=== PATIENT | male | born 1990 | race Caucasian/White ===

== ENCOUNTER 2020-06-21 06:21 | Outpatient (REF) | payer OTHER, SELFPAY ==
[2020-06-21 12:05] LABS: Alanine Aminotransferase 23 U/L (0-40); Albumin Level 4.2 g/dL (3.5-5.0); Alkaline Phosphatase 61 U/L (39-117); Anion Gap 10 (12-20); Aspartate Amino Transferase 22 U/L (5-37); Bilirubin Total 0.3 mg/dL (0.0-1.0); Blood Urea Nitrogen 12 mg/dL (9-16); Carbon Dioxide 29 mmol/L (22-29); Chloride 105 mmol/L (96-108); Cholesterol 164 mg/dL; Estimated Glomerular Filt Rate > 60; Glucose Fasting 90 mg/dL (60-99); HDL Cholesterol 38 mg/dL; LDL Cholesterol Calculated 55 mg/dl; Potassium 3.9 mmol/L (3.3-5.1); Sodium 140 mmol/L (135-145); Total Protein 6.6 g/dL (6.5-8.0); Triglycerides 356 mg/dL
[2020-06-21 12:27] LABS: TSH reflex Free T4 0.91 uIU/mL (0.32-4.0)
== END 2020-06-21 06:22 | disposition home or self-care (01) ==
LOC: HO.HMGCLDS 06:21
PROVIDERS: PCP Nurse Practitioner Family; Visit Provider Nurse Practitioner Family
DX: Z00.00 Encounter for general adult medical examination without abnormal findings (principal); E78.1 Pure hyperglyceridemia
CPT/HCPCS: 36415; 80053; 80061; 84443

== ENCOUNTER 2020-08-14 10:14 | Outpatient (REF) | payer OTHER, SELFPAY ==
[2020-08-14 10:31] LABS: COVID-19 Test Negative (Negative)
== END 2020-08-14 10:15 | disposition home or self-care (01) ==
LOC: HO.LAB 10:14
PROVIDERS: Visit Provider Internal Medicine
DX: Z20.822 Contact with and (suspected) exposure to COVID-19 (principal)
CPT/HCPCS: 36415; 87635; C9803

== ENCOUNTER 2020-11-27 08:06 | Emergency (ER) | payer OTHER, SELFPAY ==
[2020-11-27 08:19] VITALS: BP 131/80; PULSE 63; RESP 14; TEMP 36.6; BMI 19.8
--- NOTE | 2020-11-27 08:25 | ED_ITS ---
HPI - Weakness General Chief complaint: Weakness Stated complaint: weakness Time Seen by Provider: 11/27/20 08:25 Source: patient Mode of arrival: ambulatory Limitations: no limitations History of Present Illness HPI Narrative: Patient works in hot humid atmosphere been complaining of nausea vomiting diarrhea 3 days ago since then been feeling weak and dehydrated with body aches no vomiting or diarrhea for last 24 hours Related Data Home Medications Medication Instructions Recorded Confirmed No Known Home Meds 06/05/20 07/25/20 Allergies Allergy/AdvReac Type Severity Reaction Status Date / Time acetaminophen [From Tylenol] Allergy Unknown UNKNOWN Verified 07/25/20 14:38 Review of Systems Review of Systems: Yes all other systems are reviewed and are negative [facility] Past Medical History Medical History Anxiety and depression Family History Family History Sister Diabetes Maternal Grandfather Heart attack Paternal Grandfather Cancer Social History Social History Alcohol intake: unknown Patient Tobacco Use Status: Tobacco use Unknown Cigarettes Per Day: 1 Use of substances other than those prescribed or required for medical reasons: No Advance Directives: No Advance Directives Information Provided: No Physical Exam Vital Signs: Vital Signs: Last Vital Signs Temp 97.9 F 11/27/20 08:19 Pulse 63 11/27/20 08:19 Resp 14 11/27/20 08:19 BP 131/80 11/27/20 08:19 Body Mass Index 19.8 Appearance: Alert. Oriented X3. No acute distress. Eyes: PERRLA, No Nystagmus ENT: Pharynx normal. Oral Mucosa moist Neck: Normal inspection. Neck supple. CVS: Normal heart rate and rhythm. Pulses normal. Respiratory: No respiratory distress. Equal air entry bilateral, no wheezing/rales/rhonchi Abdomen: Soft and nontender. Bowel sounds are present, no mass palpable, no CVA tenderness Skin: Skin warm and dry. Normal skin color. Normal skin turgor. Extremities: No lower extremity edema. No calf tenderness Neuro: Oriented X 3. No motor deficit. No sensory deficit.No cerebellar signs , cranial nerves II-XII intact MDM - Weakness MDM Narrative Medical decision making narrative: Patient likely heat exhaustion felt better after IV fluids taking p.o. fluids will discharge him home Lab Data Attestation: I reviewed the patient's lab results. Result diagrams: 11/27/20 09:01 11/27/20 09:01 Labs: Lab Results 11/27/20 11/27/20 11/27/20 Range/Units 09:01 09:01 09:01 WBC 4.4 L (4.8-10.8) X10*3/uL RBC 4.94 (4.60-5.80) X10*6/uL Hgb 14.7 (14.0-18.0) g/dl Hct 41.9 L (42-52) % MCV 84.8 (80-98) fL MCH 29.8 (27.0-33.0) pg MCHC 35.1 (31.0-36.0) g/dl RDW 12.3 (11.0-16.0) % Plt Count 145 L (160-400) X10*3/uL MPV 10.0 (9.4-12.4) fL Immature Gran % (Auto) 0.5 H (0.0-0.4) % Neut % (Auto) 50.0 (45-73) % Lymph % (Auto) 36.6 (20-40) % [place] % (Auto) 8.7 (2-11) % Eos % (Auto) 3.7 (0-4) % Baso % (Auto) 0.5 (0-2) % Lymph # (Auto) 1.6 (1.2-4.9) X10*3/uL [place] # (Auto) 0.4 (0.1-1.2) X10*3/uL Eos # (Auto) 0.2 (0.0-0.4) X10*3/uL Baso # (Auto) 0.0 (0.0-0.2) X10*3/uL Abs Immat Gran (auto) 0.02 (0.00-0.03) X10*3/uL Absolute Neuts (auto) 2.2 (2.0-8.3) X10*3/uL Absolute Nucleated RBC 0.000 (0.0-0.012) X10*3/uL Nucleated RBC % (auto) 0.0 (0.0-0.2) /100WBC Sodium 141 (135-145) mmol/L Potassium 4.4 (3.3-5.1) mmol/L Chloride 107 (96-108) mmol/L Carbon Dioxide 27 (22-29) mmol/L Anion Gap 11 L (12-20) BUN 10 (9-16) mg/dL Creatinine 0.86 (0.5-1.4) mg/dL Estim Creat Clear Calc 103.8 Estimated GFR > 60 Random Glucose 97 (60-115) mg/dL Calcium 9.5 (8.4-10.2) mg/dL Magnesium 2.1 (1.6-2.6) mg/dL Total Creatine Kinase 109 (38-174) U/L COVID-19 (CARLA) (Negative) COVID-19 Clin Com 11/27/20 Range/Units 10:03 WBC (4.8-10.8) X10*3/uL RBC (4.60-5.80) X10*6/uL Hgb (14.0-18.0) g/dl Hct (42-52) % MCV (80-98) fL MCH (27.0-33.0) pg MCHC (31.0-36.0) g/dl RDW (11.0-16.0) % Plt Count (160-400) X10*3/uL MPV (9.4-12.4) fL Immature Gran % (Auto) (0.0-0.4) % Neut % (Auto) (45-73) % Lymph % (Auto) (20-40) % [place] % (Auto) (2-11) % Eos % (Auto) (0-4) % Baso % (Auto) (0-2) % Lymph # (Auto) (1.2-4.9) X10*3/uL [place] # (Auto) (0.1-1.2) X10*3/uL Eos # (Auto) (0.0-0.4) X10*3/uL Baso # (Auto) (0.0-0.2) X10*3/uL Abs Immat Gran (auto) (0.00-0.03) X10*3/uL Absolute Neuts (auto) (2.0-8.3) X10*3/uL Absolute Nucleated RBC (0.0-0.012) X10*3/uL Nucleated RBC % (auto) (0.0-0.2) /100WBC Sodium (135-145) mmol/L Potassium (3.3-5.1) mmol/L Chloride (96-108) mmol/L Carbon Dioxide (22-29) mmol/L Anion Gap (12-20) BUN (9-16) mg/dL Creatinine (0.5-1.4) mg/dL Estim Creat Clear Calc Estimated GFR Random Glucose (60-115) mg/dL Calcium (8.4-10.2) mg/dL Magnesium (1.6-2.6) mg/dL Total Creatine Kinase (38-174) U/L COVID-19 (CARLA) Negative (Negative) COVID-19 Clin Com See Note Discharge Plan Discharge Clinical Impression: Heat exhaustion Qualifiers: Encounter type: initial encounter Qualified Code(s): T67.5XXA - Heat exhaustion, unspecified, initial encounter Patient Disposition: Home, Self-Care Instructions: Heat Exhaustion (ED) Additional Instructions: Drink plenty of fluids Stay in shaded area Prescriptions: No Action No Known Home Meds RF: 0 Interventions: ED Discharge Assessment Last Done: 11/27/20 10:41 Discharge Date/Time: 11/27/20 10:41
[2020-11-27 09:11] LABS: MANUAL DIFF FLAG NO
[2020-11-27] MEDS: 0.9 % Sodium Chloride 1,000 ML 999 ML IVCONT (09:11)
[2020-11-27 09:14] LABS: Basophils Percent Auto 0.5 % (0-2); Eosinophils Absolute Auto 0.2 X10*3/uL (0.0-0.4); Eosinophils Percent Auto 3.7 % (0-4); Hematocrit 41.9 % (42-52); Hemoglobin 14.7 g/dl (14.0-18.0); Imm Gran Abs Auto 0.02 X10*3/uL (0.00-0.03); Imm Gran Pct Auto 0.5 % (0.0-0.4); Lymphocytes Absolute Auto 1.6 X10*3/uL (1.2-4.9); Lymphocytes Percent Auto 36.6 % (20-40); Mean Corpuscular HGB Conc 35.1 g/dl (31.0-36.0); Mean Corpuscular Hemoglobin 29.8 pg (27.0-33.0); Mean Corpuscular Volume 84.8 fL (80-98); Monocytes Absolute Auto 0.4 X10*3/uL (0.1-1.2); Monocytes Percent Auto 8.7 % (2-11); Neutrophils Absolute Auto 2.2 X10*3/uL (2.0-8.3); Platelet Count 145 X10*3/uL (160-400); Red Blood Count 4.94 X10*6/uL (4.60-5.80); Red Cell Distribution Width 12.3 % (11.0-16.0); White Blood Count 4.4 X10*3/uL (4.8-10.8)
[2020-11-27 09:46] LABS: Anion Gap 11 (12-20); Blood Urea Nitrogen 10 mg/dL (9-16); Calcium 9.5 mg/dL (8.4-10.2); Carbon Dioxide 27 mmol/L (22-29); Chloride 107 mmol/L (96-108); Creatinine Clr Calc Pharmacy 103.8; Estimated Glomerular Filt Rate > 60; Glucose Random 97 mg/dL (60-115); Magnesium 2.1 mg/dL (1.6-2.6); Potassium 4.4 mmol/L (3.3-5.1); Sodium 141 mmol/L (135-145)
[2020-11-27 10:27] LABS: COVID-19 Test Negative (Negative)
== END 2020-11-27 10:41 | disposition home or self-care (01) ==
PROVIDERS: Emergency Provider Internal Medicine; PCP Nurse Practitioner Family
DX: T67.5XXA Heat exhaustion, unspecified, initial encounter (principal); X58.XXXA Exposure to other specified factors, initial encounter; R53.1 Weakness; Z20.822 Contact with and (suspected) exposure to COVID-19; Y93.9 Activity, unspecified; Y92.10 Unspecified residential institution as the place of occurrence of the external cause; Y99.0 Civilian activity done for income or pay
CPT/HCPCS: 36415; 80048; 82550; 83735; 85025; 87635; 96360; 99284

== ENCOUNTER 2021-07-22 15:13 | Outpatient (REF) | payer OTHER, SELFPAY ==
--- NOTE | ~2021-07-22 | XR_ITS ---
EXAMINATION: XR lumbar spine 2-3V CLINICAL INFORMATION: Reason for Exam M54.31 - Sciatica, right side COMPARISON: None TECHNIQUE: 3 views of the lumbar spine XR/XR lumbar spine 2-3V FINDINGS/IMPRESSION: 5 nonrib-bearing lumbar-type vertebral bodies. 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 Vertebral body heights are maintained. Alignment is maintained. Disc space heights are maintained. Paravertebral soft tissues are unremarkable.
== END 2021-07-22 15:14 | disposition home or self-care (01) ==
LOC: HO.HMGCX 15:13
PROVIDERS: Visit Provider Nurse Practitioner Family
DX: M54.31 Sciatica, right side (principal)
CPT/HCPCS: 72100